=== PATIENT | male | born 1960 | race Caucasian/White ===

== ENCOUNTER 2018-04-04 11:55 | Emergency (ER) | payer MEDICAID ==
[~2018-04-04] VITALS: Ht 177.8 cm; Wt 79.4 kg
[2018-04-04 12:13] VITALS: BP_SYST 156
[2018-04-04 13:44] LABS: BILIRUBIN,URINE 1+ (NEGATIVE); BLOOD, URINE NEGATIVE (NEGATIVE); CLARITY/URINE CLEAR (CLEAR); COLOR,URINE YELLOW (YELLOW); GLUCOSE,URINE NEGATIVE (NEGATIVE); KETONES,URINE 2+ (NEGATIVE); LEUKOCYTE ESTERASE ,URINE NEGATIVE (NEGATIVE); NITRITE, URINE NEGATIVE (NEGATIVE); PROTEIN URINE TRACE (NEGATIVE); UROBILINOGEN,URINE 0.2 (0.2-1.0)
[2018-04-04 14:01] LABS: BACTERIA,URINE FEW /HPF (None Seen); MUCUS,URINE None Seen /LPF (None Seen); RBC,URINE 0-3 /HPF (0-3); WBC,URINE 0-3 /HPF (0-3); YEAST,URINE None Seen /HPF (None Seen)
[2018-04-04] MEDS ORDERED: DIPHENHYDRAMINE INJ 50 MG/ML VIAL IM ONE (14:30)
[2018-04-04] MEDS ORDERED: NA PHOS,M-B/NA PHOS,DI-BA 118 ML (FLEET ENEMA) RC ONE (14:30)
[2018-04-04] MEDS ORDERED: chlorproMAZINE HCL 50 MG/ 2 ML AMP IVP ONE (14:30)
[2018-04-04] MEDS ORDERED: DIPHENHYDRAMINE INJ 50 MG/ML VIAL IVP ONE (14:30)
[2018-04-04] MEDS ORDERED: NACL 0.9% 1,000 ML IV ONE (14:30)
[2018-04-04] MEDS ORDERED: chlorproMAZINE HCL 50 MG/ 2 ML AMP IM ONE (14:30)
[2018-04-04] MEDS ORDERED: ONDANSETRON HCL 4 MG/2 ML VIAL IVP ONE (14:30)
[2018-04-04 14:59] VITALS: BP_SYST 156
[2018-04-04] MEDS ORDERED: cloNIDine HCL 0.1 MG TABLET ONE (21:50)
== END 2018-04-04 14:59 | disposition left against medical advice (07) ==
LOC: SED 11:55
DX: K59.00 Constipation, unspecified (principal); R11.10 Vomiting, unspecified; R06.6 Hiccough
CPT/HCPCS: 74018; 81000-TC; 99285

== ENCOUNTER 2018-04-12 20:43 | Inpatient (IN) | payer MEDICAID ==
[~2018-04-12] VITALS: Ht 177.8 cm; Wt 78.9 kg
[2018-04-12 20:55] VITALS: BP_SYST 122
--- NOTE | 2018-04-12 20:55 | NUR ---
Patient triaged and placed in waiting room. VSS and patient appears in no acute distress at this time. Accompanied by self, awaiting available bed, and MD notified of need for MSE.
--- NOTE | 2018-04-13 00:04 | NUR ---
Patient to ER bed 5 to gown for evaluation. Side rails up. Report given to Kushal ARECHIGA.
--- NOTE | 2018-04-13 00:10 | NUR ---
Patient to ER via triage for evaluation of vomiting, abdominal pain, weight loss, fever, chills and inability to tolerate PO food/fluids. Patient is awake, alert and oriented in no acute distress, Heart rate elevated, but vital signs otherwise stable, respirations even and unlabored, skin warm and dry to touch. Awaiting evaluation by ER MD, will continue to observe and assess.
--- NOTE | 2018-04-13 00:45 | NUR ---
Patient resting quietly in no acute distress with eyes closed, and slow even respirations. Awaiting evaluation by ER MD.
--- NOTE | 2018-04-13 01:30 | NUR ---
Patient concerned about dehydration due to patient reporting vomiting every 12 hours, patient reports that his urine output has been normal. Patient is pink/moist mucus membranes.
--- NOTE | 2018-04-13 01:35 | NUR ---
Dr Villatoro at bedside to evaluate patient.
[2018-04-13] MEDS ORDERED: METOCLOPRAMIDE HCL 10 MG/2 ML VIAL IVP ONE (02:15)
[2018-04-13] MEDS ORDERED: LORazepam 2 MG/ML VIAL (FOR ER USE) IVP ONE (02:15)
[2018-04-13] MEDS ORDERED: DIPHENHYDRAMINE INJ 50 MG/ML VIAL IVP ONE (02:15)
--- NOTE | 2018-04-13 02:30 | NUR ---
Patient resting quietly in no acute distress, vital signs stable, respirations even and unlabored, skin arm and dry to touch. Awaiting CT scan/lab results and dispo.
[2018-04-13 02:42] LABS: BASOPHILS % (AUTO) 0.6 % (0.0-2.0); EOSINOPHILS # (AUTO) 0.1 K/uL (0.0-0.4); EOSINOPHILS % (AUTO) 1.1 % (0.0-4.0); HEMATOCRIT 50.2 % (36-54); HEMOGLOBIN 17.1 g/dL (14.0-18.0); LYMPHOCYTES # (AUTO) 1.5 K/uL (1.0-5.5); LYMPHOCYTES % (AUTO) 19.5 % (20.5-51.5); MEAN CORPUSCULAR HEMOGLOBIN 31 pg (27-31); MEAN CORPUSCULAR HGB CONC 34 % (32-36); MEAN CORPUSCULAR VOLUME 92 fL (79.0-98.0); MONOCYTES # (AUTO) 1.2 K/uL (0.0-1.0); MONOCYTES % (AUTO) 16.1 % (1.7-9.3); NEUTROPHILS # (AUTO) 4.7 K/uL (1.8-7.7); NEUTROPHILS % (AUTO) 62.7 % (40.0-70.0); PLATELET COUNT (AUTO) 398 K/uL (130-430); RED BLOOD CELL COUNT(AUTO) 5.48 MIL/uL (4.2-6.2); RED CELL DISTRIBUTION WIDTH 12.7 % (9.0-15.0); WHITE BLOOD COUNT (AUTO) 7.5 K/uL (4.8-10.8)
[2018-04-13 02:49] LABS: INR 1.2 (0.80-1.20)
[2018-04-13 02:54] LABS: CALCIUM 9.6 mg/dL (8.4-11.0); CREATININE 1.27 mg/dL (0.55-1.30); POTASSIUM 3.2 mmol/L (3.5-5.1)
[2018-04-13 03:01] LABS: ALBUMIN 4.1 g/dL (3.4-4.8); TOTAL BILIRUBIN 0.7 mg/dL (0.0-1.0)
--- NOTE | 2018-04-13 03:10 | NUR ---
Patient to CT scan in stable condition via gurney.
[2018-04-13] MEDS ORDERED: IOHEXOL 100 ML IV ONE (03:11)
--- NOTE | 2018-04-13 04:01 | NUR ---
Patient denies taking any home medications.
--- NOTE | 2018-04-13 04:30 | NUR ---
Patient is calmly resting in ER bed, no signs of distress noted. Vital signs are within therapeutic range.
[2018-04-13 05:21] LABS: BILIRUBIN,URINE 2+ (NEGATIVE); BLOOD, URINE NEGATIVE (NEGATIVE); CLARITY/URINE CLEAR (CLEAR); COLOR,URINE YELLOW (YELLOW); GLUCOSE,URINE NEGATIVE (NEGATIVE); KETONES,URINE 3+ (NEGATIVE); LEUKOCYTE ESTERASE ,URINE NEGATIVE (NEGATIVE); NITRITE, URINE NEGATIVE (NEGATIVE); PH,URINE 5.5 (5.0-8.0); PROTEIN URINE TRACE (NEGATIVE)
[2018-04-13 05:30] LABS: BACTERIA,URINE FEW /HPF (None Seen); RBC,URINE 0-3 /HPF (0-3); WBC,URINE 0-3 /HPF (0-3)
[2018-04-13 05:31] LABS: HYALINE CASTS, URINE 0-10 /LPF (None Seen)
--- NOTE | 2018-04-13 05:40 | NUR ---
ED MD Contreras at bedside reassessing patient. Discussing possible admission. Patient states, "I would like to call my girlfriend before I make a decision".
--- NOTE | 2018-04-13 05:57 | NUR ---
End of life care decisions discussed with patient by Dr. Villatoro. Opportunity for questions and concerns addressed. Patient's code status is full code. Paperwork completed and placed in chart.
--- NOTE | 2018-04-13 06:22 | NUR ---
Patient will be admitted to care of Dr. Akers. Admitted to med surg unit. Will go to room 116A. Belongings list completed. Summary report printed. Report was given by Kenny ARECHIGA to admitting RN at the bedside.
[2018-04-13 06:30] VITALS: BP_SYST 131
--- NOTE | 2018-04-13 06:30 | NUR ---
ADMISSION NOTE Received patient from ER via gurney. Patient admitted with diagnosis of Intestinal obstruction. Patient is awake, alert, oriented X 4. Patient oriented to hospital room, call light, toileting, pain management and safety-teach back done. Patient informed that FRANCK will be HIS nurse and that their room number is 116A. Personal belongings checked and Belongings List documented. Call light within reach.
--- NOTE | 2018-04-13 06:44 | NUR ---
CONSULTATION PAGED/CALLED Reason for Consultation: [] GASTROINTESTINAL OBSTRUCTION Person Who was Notified: [] ANALIA Consulting Physician: [] DR SUSANA SALTER Matrix Plater Specialty: [] GI Ordering Physician: [] DR Anshu RUVALCABA
--- NOTE | 2018-04-13 07:26 | NUR ---
Endorse care Endorse care to incoming nurse Mayte ARECHIGA. All questions answered.
--- NOTE | 2018-04-13 07:41 | NUR ---
OPENING NOTE PATIENT WALKING AROUND ROOM WITH STEADY GAIT, BRUSHING TEETH AND GIVING HIMSELF A BED BATH. VITAL SIGNS TAKEN. EXTENSIONS OF RN, LITIGATION CLAIM REPRESENTATIVE AND SUSTAINABLE PRODUCTS MARKETING MANAGER WRITTEN ON WHITE BOARD. PLAN OF CARE DISCUSSED WITH PATIENT. PATIENT VERBALIZED UNDERSTANDING. SAFETY PRECAUTIONS IN ORDER, CALL LIGHT IN REACH AND BED ALARM REFUSED BY PATIENT.
[2018-04-13 08:30] VITALS: BP_SYST 125
[2018-04-13] MEDS ORDERED: ONDANSETRON HCL 4 MG/2 ML VIAL IVP PRN (08:30)
[2018-04-13] MEDS ORDERED: MORPHINE 4 MG/ML INJ. SYRINGE IVP PRN (08:30)
[2018-04-13] MEDS ORDERED: LORazepam 2 MG/ML VIAL IVP PRN (08:30)
[2018-04-13] MEDS ORDERED: MORPHINE 2 MG/ML INJ. SYRINGE IVP PRN (08:30)
[2018-04-13] MEDS: D5/0.45 NS 1,000 ML IV SCH ×2 (08:49→16:40)
--- NOTE | 2018-04-13 10:10 | NUR ---
DR SALTER CALLED STATES TO ORDER 2 DOSES OF MIRALAX, ORDER AN XRAY SWALLOW THROUGH AND AFTER TEST, PATIENT CAN HAVE CLEAR LIQUIDS.
[2018-04-13] MEDS ORDERED: POLYETHYLENE GLYCOL 3350, 17 GM/ POWD.PACK PO ONE (10:30)
[2018-04-13] MEDS ORDERED: GASTROGRAFIN 120 ML ONE (10:49)
--- NOTE | 2018-04-13 11:35 | NUR ---
DR SALTER CALLED STATES HE BELIEVES PATIENT HAS A SMALL AND LARGE BOWEL OBSTRUCTION AND HE RECOMMENDS TO CALL DR RUVALCABA FOR A CONSULT WITH SURGEON.
--- NOTE | 2018-04-13 11:40 | NUR ---
DR RUVALCABA PAGED AND CALLED BACK. ORDERS A CONSULT FOR DR. MURRAY.
--- NOTE | 2018-04-13 11:45 | NUR ---
CONSULTATION PAGED/CALLED Reason for Consultation: [] intestinal obstruction Person Who was Notified: [] DR ELIZABETH MURRAY Consulting Physician: [] DR ELIZABETH MURRAY Reviewer Sales Specialty: [] GENERAL SURGEON Ordering Physician: [] DR RISHI RUVALCABA
--- NOTE | 2018-04-13 11:47 | NUR ---
DR MURRAY CALLED GIVEN REPORT TO ON PATIENT. MD STATES HE WILL SEE PATIENT LATER TODAY.
[2018-04-13 12:46] VITALS: BP_SYST 133
--- NOTE | 2018-04-13 13:43 | NUR ---
Patient refused Miralax and tap water enema. Patient states "I've tried this before and it has not worked. We need to try something new."
--- NOTE | 2018-04-13 15:39 | NUR ---
Rounds Patient sitting in bed. Wants to know the plan of care and when he will be going to surgery. Patient made aware that a surgeon will come to see him and will discuss his plan of care with patient.
[2018-04-13 16:38] VITALS: BP_SYST 129
--- NOTE | 2018-04-13 18:33 | NUR ---
Closing Note Patient a/ox3, no complaints of pain or difficulty breathing on room air. All needs met throughout shift. Will endorse plan of care to noc shift. safety precautions in order, call light in reach and bed alarm on.
[2018-04-13 20:16] VITALS: BP_SYST 135
--- NOTE | 2018-04-13 20:53 | NUR ---
POTASSIUM 3.2 , PHONED PAGED DR Abdoulaye RUVALCABA MD .
--- NOTE | 2018-04-13 20:54 | NUR ---
SPOKE WITH DR RUVALCABA NEW ORDERS RECEIVED FOR K DUR X ONE DOSE .
[2018-04-13] MEDS: POTASSIUM CHLORIDE 20 MEQ TAB.PRT.SR PO ONE ×2 (22:00→22:14)
--- NOTE | 2018-04-13 22:00 | NUR ---
DR MURRAY HERE , DID PRINT OUT CT REPORT FOR DR TERRI MURRAY STATES WILL NOT SEE PATIENT DOES NOT AGREE WITH DR SALTER'S RECOMMENDATION , OR HIS PROGRESS NOTES & TO CALL DR SALTER TO MAKE HIM AWARE .
--- NOTE | 2018-04-13 22:02 | NUR ---
REFUSE POTASSIUM TABLETS 40 MEQ @ LAST MINUTE / REFUSE PO .
--- NOTE | 2018-04-13 22:16 | NUR ---
LOW POTASSIUM 3.2 EXPLAINED TO PATIENT AFTER SCANNING TABLET , PATIENT STATES IS TIRED & AND WOULD POSSIBLY TAKE PO k + , AFTER AM MEAL .
--- NOTE | 2018-04-13 22:17 | NUR ---
PAGE CALLED FOR DR. MODI (DISPATCHER CHIEF COAL SLURRY FOR DR. SALTER). SPOKE TO ISIDRO, DIALED [phone].
--- NOTE | 2018-04-13 22:35 | NUR ---
SPOKE WITH DR LY SAPP AP OPERATOR FOR DR SALTER AND UPDATED DR MODI THAT DR MURRAY WILL NOT SEE PATIENT & DOES NOT AGREE WITH DR SALTER .
--- NOTE | 2018-04-14 00:14 | NUR ---
PATIENT REFUSING IVF @ THIS TIME PROCEDURES EXPLAINED , IS ON CLEAR LIQUID PO DIET , SAFETY MEASURES IMPLEMENTED PATIENT ALSO WANTS ROOM DOOR CLOSED CONTINUE TO MONITOR .
--- NOTE | 2018-04-14 02:26 | NUR ---
[facility] OF THE [facility] COLLECTED & SENT TO LAB .
[2018-04-14] MEDS: D5/0.45 NS 1,000 ML IV SCH ×3 (02:29→22:30)
[2018-04-14 06:48] LABS: BASOPHILS # (AUTO) 0.1 K/uL (0.0-0.2); BASOPHILS % (AUTO) 0.6 % (0.0-2.0); CALCIUM 8.9 mg/dL (8.4-11.0); CREATININE 0.97 mg/dL (0.55-1.30); EOSINOPHILS # (AUTO) 0.2 K/uL (0.0-0.4); EOSINOPHILS % (AUTO) 2.1 % (0.0-4.0); HEMATOCRIT 45.4 % (36-54); HEMOGLOBIN 15.4 g/dL (14.0-18.0); LYMPHOCYTES # (AUTO) 1.4 K/uL (1.0-5.5); LYMPHOCYTES % (AUTO) 15.4 % (20.5-51.5); MEAN CORPUSCULAR HEMOGLOBIN 31 pg (27-31); MEAN CORPUSCULAR HGB CONC 34 % (32-36); MEAN CORPUSCULAR VOLUME 92 fL (79.0-98.0); MONOCYTES # (AUTO) 1.4 K/uL (0.0-1.0); MONOCYTES % (AUTO) 14.7 % (1.7-9.3); NEUTROPHILS # (AUTO) 6.3 K/uL (1.8-7.7); NEUTROPHILS % (AUTO) 67.2 % (40.0-70.0); PLATELET COUNT (AUTO) 367 K/uL (130-430); POTASSIUM 3.5 mmol/L (3.5-5.1); RED BLOOD CELL COUNT(AUTO) 4.95 MIL/uL (4.2-6.2); RED CELL DISTRIBUTION WIDTH 12.2 % (9.0-15.0); WHITE BLOOD COUNT (AUTO) 9.4 K/uL (4.8-10.8)
--- NOTE | 2018-04-14 06:57 | NUR ---
Patient alert oriented & REFUSING IVF this hour , wants MEAGHAN .
--- NOTE | 2018-04-14 07:50 | NUR ---
Initial note Pt laying to side in bed, resting, easy to arouse. No s/s of acute distress or complaint of pain at this time. VSS. Breathing even and unlabored on room air. IV to rac 20 g noted. Pt educated that he has an order for iv fluids and he is note connected, questioned as to why. Pt states it gets in the way of doing things, pt asked if i could reconnect him now or after breakfast, he states that after breakfast and he brushes his teeth and gets cleaned up, so around 830, will follow up that request. Plan of care discussed, safety measures in place, call light within reach.
[2018-04-14 08:02] VITALS: BP_SYST 122
[2018-04-14] MEDS ORDERED: ONDANSETRON HCL 4 MG/2 ML VIAL IVP PRN (10:15)
--- NOTE | 2018-04-14 10:15 | NUR ---
Dr Garcia making rounds, pt updated on his plan of care, per [facility] orders for colonoscopy in am, golytly and enema, if patient unable to tolerate rn to call md for further orders
--- NOTE | 2018-04-14 11:38 | NUR ---
Attempted to get consent for colonoscopy, DR Garcia has already spoken with patient regarding plan of care and colonoscopy, pt states he would like to think about it, will maybe sign consent in the evening, will follow up
[2018-04-14 12:10] VITALS: BP_SYST 122
--- NOTE | 2018-04-14 14:00 | NUR ---
ROUNDS PT SITTING IN CHAIR, LOOKING OUTSIDE WINDOW. NO S/S OF ACUTE DISTRESS, NO COMPLAINT OF NAUSEA OR DISCOMFORT. IVF INFUSING TO RAC AT ORDERED RATE, PT DENIES ANY NEEDS AT THIS TIME, CALL LIGHT AT HAND, PT HAS STEADY GAIT, INDEPENDENT, WILL CONTINUE TO MONITOR PT CLOSELY
--- NOTE | 2018-04-14 14:12 | NUR ---
Dietitian Recommendations * Recommend continuing clear liquid diet per LP, RD Please refer to Nutrition Assessment for details.
--- NOTE | 2018-04-14 15:50 | NUR ---
Rounds Pt sitting in bed, resting, no s/s of acute distress noted, pt states he has hiccups that are really uncomfortable, he would like something for hiccups, Dr Akers pageanel, awaiting call back
--- NOTE | 2018-04-14 16:07 | NUR ---
DR GAETANO GALLAGHER, PT REQUESTING TO HAVE SEVERAL QUESTIONS ANSWERED BY MD BEFORE SIGNING CONSENT FOR COLONOSCOPY, PT WAS PREVIOUSLY EDUCATED WHEN MD MADE ROUNDS EARLIER, BUT PT STATES HE HAS RESEARCHED MORE INDEPTH QUESTIONS TO ASK BEFORE SIGNING, PAGED, AWAITING CALL BACK. Addendum: 04/14/18 at 1716 by Funmilayo Moore RN dr grossman answered all questions, per pt he would like to start the bowel prep at 1745, will follow up
[2018-04-14 16:10] VITALS: BP_SYST 132
[2018-04-14] MEDS ORDERED: PROMETHAZINE HCL 25 MG/ML AMP IVP PRN (16:30)
[2018-04-14] MEDS ORDERED: GOLYTELY / COLYTE SOLUTION 4 LITERS PO ONE (17:00)
--- NOTE | 2018-04-14 18:01 | NUR ---
PARADISE SALTER WAS CALLED RE: TO INFORM HIM THAT PT IS REFUSING GOLETELY, ALTERNATIVE MED? SPOKE TO NEEL.
--- NOTE | 2018-04-14 18:03 | NUR ---
PATIENT REFUSED GOLYTELY, PER PT HE HAD A CONVERSATION WITH DR SALTER PREVIOUSLY AND MD STATED THAT IF HE COULD NOT/ WOULD NOT TOLERATE GOLYTELY THERE ARE OTHER OPTIONS. DR SALTER PAGED TO MAKE AWARE AND RECEIVED NEW ORDERS, CONSENT FOR COLONOSCOPY SIGNED
--- NOTE | 2018-04-14 18:37 | NUR ---
ROUNDS PT HAD SHOWER, SITTING IN BED, NO S/S OF ACUTE DISTRESS OR PAIN, VSS, AWAITING CALL BACK FROM DR SALTER FOR ORDERS REGARDING PT REFUSAL OF GOLYTELY. ALL NEEDS ATTENDED TO THROUGHOUT SHIFT, SAFETY PRECAUTIONS MAINTAINED, CALL LIGHT WITHIN REACH, WILL GIVE REPORT TO FOLLOWING SHIFT Addendum: 04/14/18 at 1839 by Funmilayo Moore RN CLOSING NOTE *
[2018-04-14] MEDS ORDERED: BISACODYL 5 MG TABLET.DR (DULCOLAX) PO ONE (19:45)
[2018-04-14] MEDS ORDERED: MAGNESIUM CITRATE 300 ML ORAL SOLUTION PO ONE (20:00)
--- NOTE | 2018-04-14 20:00 | NUR ---
PHONED PAGED DR GAETANO SAPP PATIENT REFUSING GOLYTELY SOLUTION .
--- NOTE | 2018-04-14 20:15 | NUR ---
NEW ORDERS DR SALTER UPDATED MD PATIENT , REFUSING GOLYTELY , NEW ORDERS FOR DULCOLAX TABS & MAG CITRATE 300 ML SOLUTION .
[2018-04-14 20:46] VITALS: BP_SYST 135
--- NOTE | 2018-04-14 21:17 | NUR ---
REFUSING DULCOLAX 10 MG PO TABLETS .
--- NOTE | 2018-04-14 21:18 | NUR ---
PATIENT AWAKE ALERT PROCEDURES EXPLAINED STILL REFUSE MEDICATION FOR AM PROCEDURE , COLONOSCOPY .
--- NOTE | 2018-04-14 21:18 | NUR ---
REFUSING MAGNESIUM CITRATE 300 ML PO .
--- NOTE | 2018-04-14 21:21 | NUR ---
DR SALTER , UPDATED & AWARE PATIENT REFUSAL OF PREP FOR AM PROCEDURE .
--- NOTE | 2018-04-14 22:37 | NUR ---
PAGED PAGED DOCTOR SALTER.
--- NOTE | 2018-04-15 01:39 | NUR ---
DR SALTER , UPDATED & AWARE OF PATIENT REFUSING MAG CITRATE & PREP , DULCOLAX TABS .
--- NOTE | 2018-04-15 05:27 | NUR ---
NPO STATUS THIS HOUR HOURLY ROUNDING PATIENT IS RESTING , CALL LAWSON WITH PT / .
--- NOTE | 2018-04-15 06:17 | NUR ---
REFUSE , PATIENT IS REFUSING TAP WATER ENEMA THIS HOUR .
[2018-04-15 06:32] LABS: CALCIUM 8.1 mg/dL (8.4-11.0); CREATININE 0.82 mg/dL (0.55-1.30)
--- NOTE | 2018-04-15 06:36 | NUR ---
Spoke with Dr. Garcia and notified him that patient has refused all prep solutions and treatments and is refusing tap water enema for colonoscopy. Dr. Garcia said to cancel procedure. Crew notified.
[2018-04-15 06:42] LABS: BASOPHILS % (AUTO) 0.6 % (0.0-2.0); EOSINOPHILS # (AUTO) 0.1 K/uL (0.0-0.4); EOSINOPHILS % (AUTO) 2.2 % (0.0-4.0); HEMATOCRIT 41.2 % (36-54); HEMOGLOBIN 13.9 g/dL (14.0-18.0); LYMPHOCYTES # (AUTO) 1.4 K/uL (1.0-5.5); LYMPHOCYTES % (AUTO) 20.8 % (20.5-51.5); MEAN CORPUSCULAR HEMOGLOBIN 31 pg (27-31); MEAN CORPUSCULAR HGB CONC 34 % (32-36); MEAN CORPUSCULAR VOLUME 92 fL (79.0-98.0); MONOCYTES # (AUTO) 1.2 K/uL (0.0-1.0); MONOCYTES % (AUTO) 17.7 % (1.7-9.3); NEUTROPHILS # (AUTO) 3.8 K/uL (1.8-7.7); NEUTROPHILS % (AUTO) 58.7 % (40.0-70.0); PLATELET COUNT (AUTO) 306 K/uL (130-430); RED BLOOD CELL COUNT(AUTO) 4.48 MIL/uL (4.2-6.2); RED CELL DISTRIBUTION WIDTH 12.2 % (9.0-15.0); WHITE BLOOD COUNT (AUTO) 6.5 K/uL (4.8-10.8)
[2018-04-15 07:00] LABS: POTASSIUM 2.6 mmol/L (3.5-5.1)
--- NOTE | 2018-04-15 07:03 | NUR ---
PHONED PAGED DR PEG SAPP , POTASSIUM 2.6
--- NOTE | 2018-04-15 07:08 | NUR ---
PAGED PAGED RISHI NEVAREZ AT [phone] SPOKE WITH NOEMÍ.
--- NOTE | 2018-04-15 07:25 | NUR ---
NEW ORDERS DR RUVALCABA , GIVE K RIDER 40 MEQ IVPB / .
[2018-04-15 08:00] VITALS: BP_SYST 119
[2018-04-15] MEDS ORDERED: POTASSIUM CHLORIDE 40 MEQ in NS 250 ML IV ONE (08:00)
--- NOTE | 2018-04-15 08:00 | NUR ---
INITIAL NOTE PT LAYING IN BED, AWAKE, ALERT AND ORIENTED, BREATHING EVEN AND UNLABORED, IV TO RAC 20G INTACT, PT REFUSING IVF AT THIS TIME. PER REPORT PT REFUSED BOWEL PREP FOR COLONOSCOPY AND EVENTUALLY REFUSED COLOSCOPY. DR SALTER TO MAKE ROUNDS, PER REPORT MD AWARE. AWAITING MD ROUNDS OF NEW PLAN OF CARE, PT VERBALIZED UNDERSTANDING, SAFETY PRECAUTIONS IN PLACE, CALL LIGHT WITHIN REACH, WILL FOLLOW UP
[2018-04-15] MEDS: D5/0.45 NS 1,000 ML IV SCH ×2 (08:30→18:30)
--- NOTE | 2018-04-15 08:50 | NUR ---
PT PICKED UP FOR BARIUM ENEMA, PT REFUSED BOWEL PREP, PER MD OK TO CONTINUE WITH OUT PREP
[2018-04-15] MEDS ORDERED: GASTROGRAFIN 120 ML ONE ×2 (09:06→09:31)
--- NOTE | 2018-04-15 10:00 | NUR ---
AMAYA GONZALEZ, PT EDUCATED REGARDING IV POTASSIUM SUPPLEMENT, AMAYA GONZALEZ, IV SITE PATENT AND INTACT, WILL FOLLOW UP
--- NOTE | 2018-04-15 11:00 | NUR ---
PT REQUESTING SHOWER, IV SITE WRAPPED AND SECURED, WILL RECONNECT PATIENT TO AMAYA WHEN HE IS DONE WITH SHOWER
--- NOTE | 2018-04-15 12:20 | NUR ---
DR RUVALCABA MAKING ROUNDS UPDATED ON PATIENT STATUS AND REFUSAL OF COLONOSCOPY, MD AWARE. WILL CARRY OUT ANY NEW ORDERS
[2018-04-15] MEDS ORDERED: IOHEXOL 0 ML IV ONE (13:12)
[2018-04-15 13:18] VITALS: BP_SYST 135
--- NOTE | 2018-04-15 14:20 | NUR ---
ROUNDS PT SITTING IN BED, AT BEDSIDE, WATCHING TV, NO S/S OF ACUTE DISTRESS, NO COMPLAINT OF PAIN OF DISCOMFORT AT THIS TIME, IVF AND KIDER INFUSING AT ORDERED RATE, PT DENIES ANY NEEDS AT THIS TIME, CALL LIGHT AT HAND, WILL FOLLOW UP
--- NOTE | 2018-04-15 16:26 | NUR ---
ROUNDS PT SITTING UP IN BED, ON COMPUTER, NO S/S OF DISTRESS, PT APPEARS IN GOOD SPIRITS, IVF AND KRIDER INFUSING, IV SITE INTACT, NO S/S OF INFILTRATION NOTED, PT REQUESTING ICE WATER AND STRAWS, PT PROVIDED WITH ITEMS, CALL LIGHT WITHIN REACH, WILL FOLLOW UP
[2018-04-15 16:28] VITALS: BP_SYST 117
[2018-04-15 18:30] LABS: CALCIUM 8.7 mg/dL (8.4-11.0); CREATININE 0.89 mg/dL (0.55-1.30)
[2018-04-15 18:36] LABS: POTASSIUM 2.8 mmol/L (3.5-5.1)
--- NOTE | 2018-04-15 18:42 | NUR ---
ELLIOTT Akers, , [facility]
[2018-04-15] MEDS ORDERED: POTASSIUM CHLORIDE 40 MEQ, LIDOCAINE JECT 2% PF 100 MG 50 MG in NS 250 ML IV ONE (18:45)
--- NOTE | 2018-04-15 19:00 | NUR ---
CRITICAL LAB/CLOSING NOTE CRITICAL LAB OF POTASSIUM 2.8 RECEIVED, DR RUVALCABA PAGED, RECEIVED CALL BACK. NEW ORDER FOR REPEAT KRIDER 40MEQ WITH LIDOCAINE DUE TO PATIENT C/O SORE ARMS, IV SITE. WILL UPDATE PATIENT PATIENT UPDATED ON LAB RESULT AND PLAN OF CARE, PT REFUSED KRIDER DESPITE EDUCATIONS ON RISKS OF LOW POTASSIUM, POSSIBLE CARDIAC ISSUES. PT STILL REFUSES. ATTEMPTED TO RE-EDUCATE WITH NIGHT RN, PT STILL REFUSING KRIDER DESPITE REPEAT EDUCATION. PM RN TO NOTIFY DR RUVALCABA. PT IS A/O, STANDING AT WINDOW, NO S/S OF DISTRESS, ALL NEEDS ATTENDED TO THROUGHOUT SHIFT, SAFETY PRECAUTIONS MAINTAINED, CALL LIGHT WITHIN REACH, REPORT GIVEN TO ROD ARECHIGA AT BEDSIDE
--- NOTE | 2018-04-15 19:30 | NUR ---
INITIAL NOTES PATIENT AWAKE AND ALERT STANDING BY THE WINDOW ON STEADY GAIT, AND WITH FAMILY ON THE BEDSIDE, BREATHING EVEN AND UNLABORED, MAINTAINED POSITION OF COMFORT AND SAFETY, EXPLAINED THE PLAN OF CARE AND VERBALIZED UNDERSTANDING, WITH IV ON THE RAC, SL OF NOW SINCE THE PATIENT REFUSED TO BE CONNECTED TO HIS IV FLUID, EDUCATION GIVEN WILL CONTINUE TO MONITOR CALL LIGHT WITHIN REACH.
--- NOTE | 2018-04-15 19:34 | NUR ---
ELLIOTT Akers, , [facility].
--- NOTE | 2018-04-15 19:40 | NUR ---
MEDICATION REFUSED MEDICATION OF POTASSIUM 40MEQ K-RIDER WAS REFUSED BY THE PATIENT, GIVEN EDUCATION TOGETHER WITH THE AM NURSE ABOUT THE RISKS AND BENEFITS, AND PATIENT STATED UNDERSTANDING AND STATED "I WOULD RATHER NOT HAVE ANY MEDICATION RIGHT NOW AND WOULD LIKE A TIME OUT ON MY VEINS TONIGHT. I CAN HAVE THE MEDICATION IN THE MORNING AROUND 8AM WOULD BE FINE"
--- NOTE | 2018-04-15 19:48 | NUR ---
MD CALLED BACK MD CALLED BACK, AND STATED ABOUT THE PATIENT'S CONCERN ABOUT THE POTASSIUM KRIDER IV REFUSED AND MD IS AWARE, AND STATED THAT WE CAN DO IT IN THE MORNING. MEDICATION WAS ALSO ORDERED FOR PEPCID 20MG, PO Q 12H. ORDER NOTED AND WILL CARRY OUT
[2018-04-15 20:00] VITALS: BP_SYST 139
--- NOTE | 2018-04-15 20:45 | NUR ---
REFUSED IV FLUIDS PATIENT STATED THAT HE DOES NOT WANT TO HAVE IV FLUIDS FOR THE REST OF THE NIGHT ANS WANTS HIS VEINS TO REST. EDUCATION GIVEN AND STATED UNDERSTANDING
--- NOTE | 2018-04-15 20:58 | NUR ---
MEDICATION REFUSED MEDICATION PEPCID REFUSED, EDUCATION GIVEN ON THE RISKS AND BENEFITS AND STATED UNDERSTANDING, NO PAIN NOTED, PATIENT STATED THAT HE ALSO DOES NOT WANT THE BED ALARM TO BE ON FOR TONIGHT AND STATED THAT HE IS FAMILIAR WITH THE SURROUNDINGS, EDUCATION GIVEN FOR FALLS PATIENT STATED UNDERSTANDING WILL CONTINUE TO MONITOR CALL LIGHT WITHIN REACH.
[2018-04-15] MEDS: FAMOTIDINE 20 MG TABLET PO SCH (21:00)
--- NOTE | 2018-04-15 22:01 | NUR ---
RN ROUNDS PATIENT ON BED SLEEPING AND RESTING BREATHING EVEN AND UNLABORED, ON STABLE CONDITION, WILL CONTINUE TO MONITOR CALL LIGHT WITHIN REACH.
--- NOTE | 2018-04-16 00:05 | NUR ---
RN ROUNDS PATIENT ON BED SLEEPING AND RESTING, ON STABLE CONDITION SAFETY MAINTAINED CALL LIGHT WITHIN REACH
--- NOTE | 2018-04-16 02:07 | NUR ---
RN ROUNDS PATIENT ON BED AWAKE AND RESTING, ON STABLE CONDITION, NO COMPLAINTS NOTED, WILL CONTINUE TO MONITOR
--- NOTE | 2018-04-16 04:28 | NUR ---
RN ROUNDS PATIENT ON BED SLEEPING AND RESTING BREATHING EVEN AND UNLABORED, NO SOB NOTED, WILL CONTINUE TO MONITOR CALL LIGHT WITHIN REACH.
[2018-04-16] MEDS: D5/0.45 NS 1,000 ML IV SCH (04:30)
[2018-04-16 06:14] LABS: CALCIUM 8.3 mg/dL (8.4-11.0); CREATININE 0.91 mg/dL (0.55-1.30)
[2018-04-16 06:29] LABS: POTASSIUM 2.7 mmol/L (3.5-5.1)
--- NOTE | 2018-04-16 06:31 | NUR ---
CRITICAL LAB RESULT CRITICAL LAB RESULT FROM THE LAB FOR POTASSIUM OF 2.7 MD PAGED
--- NOTE | 2018-04-16 06:35 | NUR ---
PAGED PAGED RISHI NEVAREZ AT [phone] SPOKE WITH RICHIE.
--- NOTE | 2018-04-16 06:41 | NUR ---
MD CALLED BACK MD CALLED BACK TO READ CRITICAL LAB RESULT OF POTASSIUM 2.7 AND ORDERED KRIDER 40MEQ WITH LIDOCAINE, ORDER NOTED AND CARRIED OUT
--- NOTE | 2018-04-16 06:43 | NUR ---
CLOSING NOTES PATIENT ON BED SLEEPING AND RESTING BREATHING EVEN AND UNLABORED, NO SOB NOTED, MAINTAINED POSITION OF COMFORT AND SAFETY, STATED THAT HE STILL WANTED TO SLEEP UNTIL 0800AM. ENCOURAGED DEEP BREATHING AND RELAXATION, TOLERATING WELL ALL DUE MEDICATIONS GIVEN, PATIENT REFUSED IV FLUIDS DURING THE SHIFT EDUCATION GIVEN STATED UNDERSTANDING, WILL GIVE REPORT TO AM NURSE, WILL CONTINUE TO MONITOR CALL LIGHT WITHIN REACH.
[2018-04-16] MEDS ORDERED: POTASSIUM CHLORIDE 40 MEQ, LIDOCAINE JECT 2% PF 100 MG 50 MG in NS 250 ML IV ONE (06:45)
[2018-04-16 06:50] LABS: BASOPHILS # (AUTO) 0.1 K/uL (0.0-0.2); BASOPHILS % (AUTO) 0.9 % (0.0-2.0); EOSINOPHILS # (AUTO) 0.2 K/uL (0.0-0.4); EOSINOPHILS % (AUTO) 2.4 % (0.0-4.0); HEMATOCRIT 41.4 % (36-54); HEMOGLOBIN 13.8 g/dL (14.0-18.0); LYMPHOCYTES # (AUTO) 1.5 K/uL (1.0-5.5); LYMPHOCYTES % (AUTO) 22.9 % (20.5-51.5); MEAN CORPUSCULAR HEMOGLOBIN 31 pg (27-31); MEAN CORPUSCULAR HGB CONC 33 % (32-36); MEAN CORPUSCULAR VOLUME 92 fL (79.0-98.0); MONOCYTES # (AUTO) 0.9 K/uL (0.0-1.0); MONOCYTES % (AUTO) 14.3 % (1.7-9.3); NEUTROPHILS # (AUTO) 3.7 K/uL (1.8-7.7); NEUTROPHILS % (AUTO) 59.5 % (40.0-70.0); PLATELET COUNT (AUTO) 322 K/uL (130-430); RED BLOOD CELL COUNT(AUTO) 4.51 MIL/uL (4.2-6.2); RED CELL DISTRIBUTION WIDTH 12.6 % (9.0-15.0); WHITE BLOOD COUNT (AUTO) 6.4 K/uL (4.8-10.8)
--- NOTE | 2018-04-16 07:39 | NUR ---
INITIAL NOTE PT LAYING IN BED, RESTING, EVEN RISE AND FALL OF CHEST NOTED. PT STATES HE WOULD LIKE A FEW MORE MINUTES OF UNINTERPRETED SLEEP, IF I CAN PLEASE LEAVE AND COME BACK AT 8AM. VS NOT TAKEN AT THIS TIME. NO S/S OF DISTRESS NOTED, SAFETY MEASURES IN PLACE, CALL LIGHT WITHIN REACH, WILL COME BACK AFTER 8 PER PT REQUEST
[2018-04-16 08:00] VITALS: BP_SYST 124
[2018-04-16] MEDS: FAMOTIDINE 20 MG TABLET PO SCH (08:46)
--- NOTE | 2018-04-16 10:20 | NUR ---
DR RUVALCABA AT BEDSIDE MD MADE AWARE THAT PT DID NOT LET STAFF START KRIDER UNTIL THIS MORNING AFTER 8AM, PER MD HE IS AWARE. IF PT CLEARED BY DR GAETANO DC PATIENT HOME WITH PRESCRIPTION FOR POTASSIUM, NO REPEAT BMP BEFORE DISCHARGE. PT AWARE, WILL FOLLOW UP
--- NOTE | 2018-04-16 10:45 | NUR ---
DR SALTER AT BEDSIDE, WITH CHARGE NURSE HEBER AND RN, MD UPDATED ON HIS STATUS, MD ADVISING PT TO HAVE A FLEXIBLE SIGMOIDOSCOPY TO GET A VIEW OF WHAT IS ACTUALLY BLOCKING THE COLON, ENCOURAGED TO PLEASE AGREE AND BE COMPLIANT WITH A TAP WATER ENEMA THIS EVENING AND ONE IN AM TO GET THE BEST PICTURE POSSIBLE OF THE SITUATION. PT VERBALIZED HE DIDNT UNDERSTAND WHY NOTHING WAS WORKING AND HE WOULD THINK ABOUT DOING THE PROCEDURE AND ENEMA. DR SALTER TITA A PICTURE ON WHITE BOARD TO EXPLAIN THE PROCESS AND NEED FOR ENEMA TO GET A CLEAR PICTURE OF THE PROBLEM. PT VERBALIZED UNDERSTANDING AND SAID HE WOULD THINK ABOUT IT.
--- NOTE | 2018-04-16 11:21 | NUR ---
MILLI CONDE PT WAS CONNECTED TO IV PUMP RECEIVING FLUIDS AND POTASSIUM DUE TO k+ 2.7, PT IS NOW REFUSING TO BE CONNECT OT PUMP STATES HE IS TIRED OF AND IS GOING TO GO HOME ANYWAY. PT EDUCATED REGARDING NEED FOR POTASSIUM AND RISK OF CARDIAC ISSUES, PT STATES HE IS FINE AND WANTS IT OFF, TO CALL THE DR AND GET SOME PILLS AND MAYBE HE'LL TAKE THOSE. DR RUVALCABA CALLED, MADE AWARE, RECEIVED ORDER FOR ORAL POTASSIUM.
[2018-04-16] MEDS ORDERED: POTASSIUM CHLORIDE 20 MEQ/PKT PACKET PO ONE (11:45)
--- NOTE | 2018-04-16 12:45 | NUR ---
AMA PT LEFT AGAINST MEDICAL ADVICE, LEFT A WRITTEN MESSAGE FOR DR SALTER. PT EDUCATED REGARDING RISKS OF LEAVING, GIVEN PRINT OF INFORMATION REGARDING INTESTINAL OBSTRUCTION AND HYPOKALEMIA, AT BEDSIDE. PT VERBALIZED UNDERSTANDING AND STATED HE JUST NEEDED TO GO HOME AND BE WITH FAMILY. AMA SIGNED, IV REMOVED, ID BAND REMOVED, PT WALKED OUT, STEADY GAIT. DR RUVALCABA AND DR SALTER CALLED TO NOTIFY
--- NOTE | 2018-04-16 12:46 | NUR ---
PAGED PAGED RISHI HINOJOSA AT [phone] SPOKE WITH NOEMÍ.
--- NOTE | 2018-04-16 12:48 | NUR ---
NOTIFIED CALLED GI DOCTOR GAETANO AT [phone] SPOKE WITH CHAPARRO TO NOTIFY DOCTOR PATIENT LEFT AMA.
== END 2018-04-16 12:45 | disposition left against medical advice (07) | DRG 247 ==
LOC: SED 20:43 → SMU 04-13 06:17
PROVIDERS: ADMIT Preventive Medicine Preventive Medicine/Occupational Environmental Medicine; ATTEND Preventive Medicine Preventive Medicine/Occupational Environmental Medicine
DX: K56.609 Unspecified intestinal obstruction, unspecified as to partial versus complete obstruction (principal); E87.1 Hypo-osmolality and hyponatremia; E87.5 Hyperkalemia; E87.6 Hypokalemia; E83.51 Hypocalcemia; F17.200 Nicotine dependence, unspecified, uncomplicated; K56.7 Ileus, unspecified; N18.9 Chronic kidney disease, unspecified; K59.00 Constipation, unspecified; Z53.21 Procedure and treatment not carried out due to patient leaving prior to being seen by health care provider; R73.9 Hyperglycemia, unspecified; R79.89 Other specified abnormal findings of blood chemistry; Z80.0 Family history of malignant neoplasm of digestive organs
CPT/HCPCS: 36415; 74250-TC; 74270-TC; 80048; 80053; 81000-TC; 83690-TC; 85025; 85610-TC; 85730-TC; 87081; 87086; 96374; 96375; 99285; J1200; J2060; J2550; J2765; J3480; J7030; J7050; Q9963; Q9967